=== PATIENT | female | born 1950 | race Caucasian/White ===

== ENCOUNTER → 2021-09-08 | Outpatient (CLI) | payer MEDICARE, OTHER, SELFPAY | END | disposition home or self-care (01) | LOC: LABSPEC 09-09 06:54 | PROVIDERS: PCP Family Medicine; Referring Provider Family Medicine; Visit Provider Family Medicine | DX: U07.1 COVID-19 (principal) | CPT/HCPCS: 87635; U0005; U0003 ==

== ENCOUNTER 2021-09-09 16:53 | Outpatient (CLI) | payer MEDICARE, OTHER, SELFPAY ==
[2021-09-09] MEDS: 0.9% Saline Lock 10 ML Syringe IV (17:07)
[2021-09-09 17:12] VITALS: BP 121/69; PULSE 68; RESP 16; TEMP 36.4; O2SAT 98; BMI 19.7
[2021-09-09 18:27] VITALS: BP 114/63; PULSE 70; RESP 16; TEMP 37.1; O2SAT 100
[2021-09-09 19:15] VITALS: BP 114/66; PULSE 68; RESP 16; TEMP 36.8; O2SAT 100
== END 2021-09-09 19:31 | disposition home or self-care (01) ==
LOC: MS3OUT 16:54 → MS3 16:54
PROVIDERS: PCP Family Medicine; Referring Provider Nurse Practitioner Adult Health; Visit Provider Nurse Practitioner Adult Health
DX: Z23 Encounter for immunization (principal); U07.1 COVID-19
CPT/HCPCS: J7050; M0245; Q0245; A4216

== ENCOUNTER 2025-03-19 07:16 | Inpatient (IN) | payer MEDICARE, SELFPAY ==
[2025-03-19] VITALS (15 sets, daily range): BP systolic 107–154; BP diastolic 45–80; PULSE 71–97; RESP 14–20; TEMP 36.5–37.2; O2SAT 75–100; BMI 21.1; BMI 20.9
--- NOTE | 2025-03-19 08:43 | CT_ITS ---
PROCEDURE: BRAIN/HEAD WITHOUT CONTRAST 03/19/2025 REASON FOR EXAM: DIZZINESS Worsening dizziness for 4 days. TECHNIQUE: Head CT without intravenous contrast. Coronal and Sagittal reconstruction series were provided. One or more dose reduction techniques were used (e.g., Automated exposure control, adjustment of the mA and/or kV according to patient size, use of iterative reconstruction technique. RADIATION DOSE SUMMARY: CTDlvol: 44.99 mGy DLP: 796.11 mGycm COMPARISON: None FINDINGS: Brain: Low density in the periventricular white matter suggests mild chronic small vessel ischemic changes. Atherosclerotic plaque formation of the cavernous portions of the internal carotid arteries bilaterally. CSF Spaces: Mild generalized cerebral atrophy Sinuses/Mastoids: Clear at visualized levels Bones: Unremarkable Reading Location: [place] [address]
--- NOTE | 2025-03-19 08:43 | EKG12_ITS ---
Test Reason : Blood Pressure : */* mmHG Vent. Rate : 79 BPM Atrial Rate : 79 BPM P-R Int : 176 ms QRS Dur : 80 ms QT Int : 392 ms P-R-T Axes : 79 42 60 degrees QTcB Int : 449 ms Normal sinus rhythm Normal ECG Confirmed by Sukhdeep Villela ([id number]), design editor KONSTANTIN CRUMP ([id number]) on 03/20/2025 6:54:22 AM Referred By: Nikko Confirmed By: Sukhdeep Villela
--- NOTE | 2025-03-19 08:44 | EDS_ITS ---
HPI History of Present Illness Chief Complaint: Dizziness Informant: patient Narrative Narrative: 74-year-old female no significant past medical history. States she has had gradual onset of worsening dizziness since around Monday. Is not associated with head movement. It is worse when she goes from a sitting to a standing position. Denies any headache or head trauma. Denies any nausea, vomiting or diarrhea. Denies any change in her vision or speech. At times makes it difficult to walk. PFSH PFSH Medical History no medical history no medical history Home Medications ?Medication ?Instructions ?Recorded ?Last Taken ?Type NK 09/09/21 Unknown History Allergy/AdvReac Type Severity Reaction Status Date / Time No Known Allergies Allergy Verified 09/09/21 12:05 Surgical History Hx laparoscopic cholecystectomy Social History Smoking Status: Never smoker ROS ROS ED ROS Narrative Denies recent illness. Constitutional Constitutional ED: Denies anorexia Eyes Eyes: Reports none ENT ENT ED: Reports none Cardiovascular Cardiovascular: Reports none Respiratory/Chest Respiratory/Chest: Reports none Gastrointestinal Gastrointestinal: Reports none Genitourinary Genitourinary ED: Reports none Musculoskeletal Musculoskeletal: Reports none Integumentary Reports none Neurologic Neurologic: Reports none Psychiatric Psychiatric: Reports none Endocrine Endocrinology: Reports none Hematologic/Lymphatic Hematologic/Lymphatic: Reports none Allergic/Immunologic Allergic/Immunologic ED: Reports none EXAM Physical Exam Narrative Exam Narrative: Well-appearing 74-year-old female sitting upright in bed. Family in the room. Vital signs stable afebrile. Pulse ox 100% on room air no hypoxia. She is in no distress. H EENT exam pupils round react light. Moist mucous membranes. Extraocular motions intact. No facial droop. Normal speech. No trauma. Neck nontender. No bruits. Lungs clear to auscultation bilaterally. Heart regular rhythm rate about 85 no murmur. Chest wall ribs nontender. Abdomen soft nontender. Moving all 4 extremities. 5 out of 5 audit practice intern strength. Dorsi plantarf lexion intact. Neurologically she is awake alert. Answering questions following commands. Hallpike maneuver negative. Back nontender. Very benign normal exam. Const Vital Signs: 03/19/25 07:16 03/19/25 07:20 03/19/25 08:16 Temperature 97.7 F L Temperature Source Temporal Pulse Rate 87 82 Pulse Rate [Lying] Pulse Rate [Sitting (for 1 minute prior to obtaining)] Pulse Rate [Standing (for 1 minute prior to obtaining)] Respiratory Rate 20 H 18 Blood Pressure 154/80 H 119/63 Blood Pressure [Lying] Blood Pressure [Sitting (for 1 minute prior to obtaining)] Blood Pressure [Standing (for 1 minute prior to obtaining)] Blood Pressure Mean 104 81 Blood Pressure Mean [Lying] Blood Pressure Mean [Sitting (for 1 minute prior to obtaining)] Blood Pressure Mean [Standing (for 1 minute prior to obtaining)] Pulse Ox 100 75 99 Oxygen Delivery Method Room Air 03/19/25 09:00 03/19/25 09:37 03/19/25 10:15 Temperature Temperature Source Pulse Rate 71 Pulse Rate [Lying] 76 Pulse Rate [Sitting (for 1 minute prior to obtaining)] 88 Pulse Rate [Standing (for 1 minute prior to obtaining)] 92 Respiratory Rate 15 Blood Pressure 127/65 H 117/70 Blood Pressure [Lying] 123/62 H Blood Pressure [Sitting (for 1 minute prior to obtaining)] 135/78 H Blood Pressure [Standing (for 1 minute prior to obtaining)] 117/70 Blood Pressure Mean 83 85 Blood Pressure Mean [Lying] 82 Blood Pressure Mean [Sitting (for 1 minute prior to obtaining)] 97 Blood Pressure Mean [Standing (for 1 minute prior to obtaining)] 85 Pulse Ox 100 100 Oxygen Delivery Method 03/19/25 11:24 03/19/25 13:00 Temperature Temperature Source Pulse Rate 79 97 Pulse Rate [Lying] Pulse Rate [Sitting (for 1 minute prior to obtaining)] Pulse Rate [Standing (for 1 minute prior to obtaining)] Respiratory Rate 17 15 Blood Pressure 107/66 119/56 L Blood Pressure [Lying] Blood Pressure [Sitting (for 1 minute prior to obtaining)] Blood Pressure [Standing (for 1 minute prior to obtaining)] Blood Pressure Mean 79 77 Blood Pressure Mean [Lying] Blood Pressure Mean [Sitting (for 1 minute prior to obtaining)] Blood Pressure Mean [Standing (for 1 minute prior to obtaining)] Pulse Ox 99 95 Oxygen Delivery Method Room Air Room Air Positive well nourished, well developed, alert, oriented x3, no apparent distress, average body habitus, no limitations and healthy appearing; Negative for obese, cachectic, contractures or unkempt General Appearance ED: active, cooperative, comfortable, well kempt and well developed; Negative for unkempt, cachectic or contractures Nutritional Appearance: Negative for cachectic or obese HEENT Reports normocephalic and head/scalp atraumatic Face and Sinus: normal facial exam Nose: external nose normal Mouth ED: Yes oral and palatal mucosa normal Mouth: oral and palatal mucosa normal Eyes PERRL and EOMs intact bilaterally General Eye ED: Yes normal appearance of both eyes Pupil: PERRL Neck full ROM, no lymphadenopathy, supple, no meningeal signs, no JVD and no carotid bruits Lymph Lymphatic: no lymphadenopathy noted and no lymphedema noted Chest Wall inspection of chest normal and palpation of chest normal Resp normal respiratory effort, normal air movement, no retractions, no use of accessory muscles and clear to auscultation bilaterally Effort and Inspection: able to speak in complete sentences Auscultation: clear to auscultation bilaterally Cardio regular rate, regular rhythm, S1 normal heart sound, S2 normal heart sound, no murmurs, no rub, no gallops, no clicks and no JVD Rate: regular rate Rhythm: regular rhythm GI normal to inspection, nondistended, normoactive bowel sounds, soft to palpation, non-tender, non-distended, no masses and no bruits Palpation: soft; Negative for tender Percussion: normal to percussion Back/Spine no CVA tenderness, normal ROM and normal to inspection Extremity normal to inspection, full ROM, normal capillary refill, no joint enlargement, no calf tenderness and no pedal edema Neuro oriented x3, CN's II-XII intact bilaterally, moves all extremities, no focal motor deficits and no sensory deficits noted Sensorium / Orientation: awake, oriented to person, oriented to place and oriented to time; Negative for orientation impaired, confused or lethargic Coordination / Balance: [id number] test normal Speech: speech normal Motor Exam: strength 5/5 throughout Coordination: [id number] test normal Psych mental status grossly normal, thought process normal, cooperative, affect normal and speech normal Appearance: grossly normal; Negative for unkempt Attitude: calm and engaged Activity / Motor Behavior: appropriate eye contact Speech: normal speech Mood & Affect: euthymic mood Thought Process: normal thought process Skin no rashes or lesions noted, no wounds, skin turgor normal, no jaundice, no petechiae and no mottling Rashes: no rashes Trauma: no lacerations or abrasions MDM MDM MDM Narrative Medical decision making narrative: 74-year-old female with dizziness seems positional but not vertiginous. Exam normal. Normal neurologic exam. Differential would include stroke, orthostatic hypotension, electrolyte abnormalities, anemia, versus other etiologies. CAT scan and labs are pending. Exam is benign. Repeat exam at 11 AM unchanged. Orthostatics were negative Hallpike's negative. Nurses tried to ambulate the patient and she had ataxia. I discussed with her test results and exam. I am going to admit her for ataxia for further evaluation and possible MRI. I have the hospitalist on page. Repeat neurologic exam in bed is unchanged and normal. NIH is 0. MRI returned abnormal. I am adding a CTA head and neck. The hospitalist on page for admission. History & Record Review Discussion w/independent historian: Patient and Family Additional record(s) reviewed:: Prior inpatient record, Prior outpatient record, Prior ED visit and Prior labs Lab Data Attestation: I reviewed the patient's lab results. Lab results narrative: CBC normal. White count 6.9. H&H 12.9 and 39. Platelets 285. Electrolytes show sodium 140. Gap 14. BUN of 18 creatinine 0.9. Glucose 180. UA is negative. No white or red cells. No bacteria or nor nitrates. CT of the brain showed chronic changes no acute process. No stroke or bleed. Abnormal MRI findings for possible ischemia. Labs: Laboratory Results - last 24 hr 03/19/25 03/19/25 07:35 09:52 WBC 6.9 RBC 4.88 Hgb 12.9 Hct 39.8 MCV 81.6 MCH 26.4 L MCHC 32.4 RDW Std Deviation 41.9 RDW Coeff of Tyson 14.2 Plt Count 285 MPV 11.1 Immature Gran % (Auto) 0.100 Neut % (Auto) 66.4 Lymph % (Auto) 24.2 [place] % (Auto) 6.9 Eos % (Auto) 2.0 Baso % (Auto) 0.4 Absolute Neuts (auto) 4.6 Absolute Lymphs (auto) 1.68 Nucleated RBC % 0 Sodium 140 Potassium 3.8 Chloride 105 Carbon Dioxide 21.8 Anion Gap 14 BUN 18 Creatinine 0.96 Estim Creat Clear Calc 43.72 L Est GFR (MDRD) Non-Af 61 BUN/Creatinine Ratio 18.8 Glucose 180 H Calcium 9.4 Urine Color Yellow Urine Clarity Cloudy Urine pH 8.0 Ur Specific [place] 1.015 Urine Protein 15 H Urine Glucose (UA) Normal Urine Ketones 15 H Urine Occult Blood Negative Urine Nitrite Negative Urine Bilirubin Negative Urine Urobilinogen Normal Ur Leukocyte Esterase 25 H Urine RBC 0-5 SEEN Urine WBC 0-5 SEEN Ur Squamous Epith Cells 0 SEEN Amorphous Sediment 2+ PHOS Urine Bacteria 0 SEEN Urine Mucus 0 SEEN Radiography Diagnostic Testing: Clinical Impression(s) from Imaging Studies Brain MRI 03/19/25 11:14 IMPRESSION: There is focal restricted diffusion in the right and left cerebellar tonsillar region, measuring 2.0 by 1.0 cm on the right, and 2.1 x 1.0 cm on the left, DWI image 02/01. There is no associated T2 or FLAIR signal change in this region. There are no T1 signal changes. There is extensive abnormal increased T2 and FLAIR signal throughout the deep and subcortical white matter on the right and left with the appearance of severe chronic small-vessel ischemic change, without associated acute diffusion. Critical results were discussed with Dr. Daniel by Dr. Perla at the time of dictation. Reading Location: [facility] Rhythm Strip Rhythm Strip: Sinus Rhythm Rate: 79 Ectopy: None EKG Initial EKG: Attestation: I personally reviewed and interpreted this EKG as follows: Interpretation: Sinus Rhythm and No Acute Injury Pattern Comments: Normal sinus rhythm rate of 79 no acute signs of CA nor ischemia nor dysrhythmia. Discharge Plan Dx/Rx/DC Orders Clinical Impression: Dizziness, Ataxia, Stroke Disposition Disposition: Acute Care [facility]
[2025-03-19 09:15] LABS: Absolute Lymphocyte Count 1.68 X10^3/uL (0.83-4.51); Absolute Neutrophil Count 4.6 X10^3/uL (2.0-7.7); Basophil# 0.03 X10^3/uL; Basophil% 0.4 % (0-1); Eosinophil# 0.14 X10^3/uL; Hematocrit 39.8 % (37-47); Hemoglobin 12.9 g/dL (12.0-15.0); Lymphocyte # 1.68 X10^3/ul (0.83-4.51); Lymphocyte % 24.2 % (19-41); Mean Corp Hgb Conc 32.4 g/dL (32-36); Mean Corpuscular Hgb 26.4 pg (27.0-32.0); Mean Corpuscular Volume 81.6 fL (81-99); Mean Platelet Vol. 11.1 fl (6.2-12.0); Monocyte# 0.48 X10^3/uL; Monocyte% 6.9 % (0-10); NRBC Flagged by Analyzer 0 % (0-5); Neutrophil # 4.59 X10^3/uL (2.7-7.7); Neutrophil % 66.4 % (47-70); Platelet Count 285 K/mm3 (150-450); RBC Distribution Width CV 14.2 % (11.6-14.6); RBC Distribution Width SD 41.9 fl (35.1-43.9); Red Blood Count 4.88 M/mm3 (4.2-5.4); White Blood Count 6.9 K/mm3 (4.4-11.0)
[2025-03-19 09:36] LABS: Anion Gap 14 (5-15); BUN 18 mg/dL (4-19); BUN/Creat Ratio 18.8 RATIO (10-20); Calcium,Total 9.4 mg/dL (7.6-11.0); Carbon Dioxide 21.8 mmol/L (21.0-32.0); Chloride 105 mmol/L (98-108); Creatinine, Serum 0.96 mg/dL (0.70-1.20); EST Glomerular Filtration Rate 61 (>60); Estimated Creatinine Clearance 43.72 ml/min (50-250); Glucose 180 mg/dL (70-99); Potassium 3.8 mmol/L (3.3-5.1); Sodium Level 140 mmol/L (133-145)
[2025-03-19 09:59] LABS: Bacteria 0 SEEN /hpf (None Seen); Mucous, Urine 0 SEEN /hpf (<or=2+); Squamous Epithelial Cells - UA 0 SEEN /hpf (5-10)
[2025-03-19 10:12] LABS: Color, Urine Yellow (Yellow); Glucose, Dipstick Normal (Normal); Ketone-Dipstick 15 mg/dl (Negative); Leukocyte Esterase-Dipstick 25 /ul (Negative); Nitrite-Dipstick Negative (Negative); Occult Blood-Urine Negative /ul (Negative); Protein-Dipstick 15 mg/dl (Negative); Specific Gravity, Urine 1.015 (1.002-1.030); Urine Bilirubin Dipstick Negative (Negative); Urine Clarity Cloudy (Clear); Urine Urobilinogen Normal (Normal)
[2025-03-19 10:21] LABS: Red Blood Cells-Urine 0-5 SEEN /hpf (0-5); White Blood Cells 0-5 SEEN /hpf (0-5)
[2025-03-19 10:22] LABS: Amorphous Sediment 2+ PHOS
--- NOTE | 2025-03-19 11:14 | MRI_ITS ---
EXAM: BRAIN WITHOUT CONTRAST CLINICAL HISTORY: ATAXIA, dizziness, weakness COMPARISON: None. TECHNIQUE: Multiplanar, multisequence MR images of the brain were obtained without gadolinium contrast material. FINDINGS: There is focal restricted diffusion in the right and left cerebellar tonsillar region, measuring 2.0 by 1.0 cm on the right, and 2.1 x 1.0 cm on the left, DWI image 02/01. There is no associated T2 or FLAIR signal change in this region. There are no T1 signal changes. There is extensive abnormal increased T2 and FLAIR signal throughout the deep and subcortical white matter on the right and left with the appearance of severe chronic small-vessel ischemic change, without associated acute diffusion. No intracranial hemorrhage, mass, mass effect, midline shift or pathologic extra- axial fluid collection. No hydrocephalus. No cerebellar tonsillar ectopia. No sellar/suprasellar signal abnormalities. The ocular globes and intraorbital soft tissues are symmetrically unremarkable. Paranasal sinuses are essentially clear. MRI/Brain without Contrast IMPRESSION: There is focal restricted diffusion in the right and left cerebellar tonsillar region, measuring 2.0 by 1.0 cm on the right, and 2.1 x 1.0 cm on the left, DWI image 02/01. There is no associated T2 or FLAIR si gnal change in this region. There are no T1 signal changes. There is extensive abnormal increased T2 and FLAIR signal throughout the deep a nd subcortical white matter on the right and left with the appearance of severe chronic small-vessel ischemic change, without ass ociated acute diffusion. Critical results were discussed with Dr. Daniel by [facility] of dictation. Reading [facility]
--- NOTE | 2025-03-19 13:18 | CT_ITS ---
PROCEDURE: CTA HEAD AND NECK W/ CONTRAST 03/19/2025 REASON FOR EXAM: ATAXIA TECHNIQUE: CTA imaging of the head and neck from the aortic arch to the skull vertex with out contrast and with intravenous contrast. Multiplanar and multisequence images were obtained. CONTRAST: Isovue 370 VOLUME: 100 mL One or more dose reduction techniques were used (e.g., Automated exposure control, adjustment of the mA and/or kV according to patient size, use of iterative reconstruction technique). RADIATION DOSE SUMMARY: CTDlvol: 15.3 mGy DLP: 545.22 mGycm COMPARISON: None FINDINGS: Heterogeneous enlargement with cystic nodule in the left lobe of the thyroid with a peripheral calcification. Left substernal extension. Aortic Arch: Normal size and branching pattern. No significant atherosclerotic plaque. Brachiocephalic and Subclavians: Unremarkable RIGHT Carotid: Right CCA: Unremarkable. Right ICA: Unremarkable. Right ECA: Unremarkable. LEFT Carotid: Left CCA: Unremarkable. Left ICA: Unremarkable. Left ECA: Unremarkable. Vertebrals: Codominant. Arise from the subclavians. Both vertebrals form the basilar. RIGHT Vertebral: Unremarkable. LEFT Vertebral: Unremarkable. Anatomy: [place] anatomy is normal. Aneurysm or avm: No intracranial aneurysms or large vascular malformations are identified. Anterior cerebral arteries: Unremarkable: Middle cerebral arteries: Unremarkable. Basilar artery: Unremarkable. Posterior cerebral arteries: Unremarkable. Other major branches of the posterior circulation: Unremarkable. Major venous structures: Unremarkable. Other findings: Hypodense nodule in the left lobe of the thyroid as described. CT/CTA Head AND Neck W/ Contrast IMPRESSION: Normal intra cerebral min extra cerebral circulation. Reading Location: [place] [address]
--- NOTE | 2025-03-19 13:44 | HP.PCM.HOS_ITS ---
HPI - General General Date of Admission: 03/19/25 Date of Service: 03/19/25 Chief Complaint: Dizziness with ataxia HPI Narrative MARIE JANSEN, is a 74 F who presented to [facility] ED on 03/19/25 with 3 to 4-day history of dizziness with ataxia. Patient has minimal medical history, takes no medications regularly. She began to notice dizziness and difficulty with balance with walking about 3 to 4 days ago. She notes that it is steadily gotten worse to the point where she has had some episodes of nausea with vomiting and cannot walk without severe ataxia, so she came in for further evaluation. CT brain was unremarkable but MRI brain obtained in the ED did show a focal restricted diffusion in the right and left cerebellar tonsillar regions measuring 2.0 x 1.0 cm in the right and 2.1 x 1.0 cm in the left concerning for acute stroke. ED physician attempted to walk her with assistance earlier this afternoon and she continued to have severe ataxia, so hospitalist was contacted for admission. I saw the patient at bedside in the ED, was present. Patient was sitting back comfortably in bed, conversing normally and in no acute distress. She denied any dizziness at rest. Denies any focal weakness or numbness/tingling. Denies any pain or discomfort. Denies any recent illnesses. No other acute concerns at this time. [facility] Medical History no medical history Home Medications ?Medication ?Instructions ?Recorded ?Last Taken ?Type NK 09/09/21 Unknown History Allergy/AdvReac Type Severity Reaction Status Date / Time No Known Allergies Allergy Verified 09/09/21 12:05 Family History no significant family his Surgical History Hx laparoscopic cholecystectomy Social History Smoking Status: Never smoker ROS Constitutional Constitutional: Denies chills, fatigue, fever(s) or weakness Eyes Eyes: Denies change in vision Cardiovascular Cardiovascular: Denies chest pain Respiratory/Chest Respiratory/Chest: Denies shortness of breath at rest Gastrointestinal Gastrointestinal: Denies abdominal pain Musculoskeletal Musculoskeletal: Denies arthralgias or myalgias Neurologic Neurologic: Reports abnormal gait, disequilibrium and dizziness; Denies abnormal speech, confusion, focal weakness, headache(s), numbness, paresthesias or tingling Vital Signs Vital Signs Vital Signs: 03/19/25 07:16 03/19/25 07:20 03/19/25 08:16 Temperature 97.7 F L Temperature Source Temporal Pulse Rate 87 82 Pulse Rate [Lying] Pulse Rate [Sitting (for 1 minute prior to obtaining)] Pulse Rate [Standing (for 1 minute prior to obtaining)] Respiratory Rate 20 H 18 Blood Pressure 154/80 H 119/63 Blood Pressure [Lying] Blood Pressure [Sitting (for 1 minute prior to obtaining)] Blood Pressure [Standing (for 1 minute prior to obtaining)] Blood Pressure Mean 104 81 Blood Pressure Mean [Lying] Blood Pressure Mean [Sitting (for 1 minute prior to obtaining)] Blood Pressure Mean [Standing (for 1 minute prior to obtaining)] Pulse Ox 100 75 99 Oxygen Delivery Method Room Air 03/19/25 09:00 03/19/25 09:37 03/19/25 10:15 Temperature Temperature Source Pulse Rate 71 Pulse Rate [Lying] 76 Pulse Rate [Sitting (for 1 minute prior to obtaining)] 88 Pulse Rate [Standing (for 1 minute prior to obtaining)] 92 Respiratory Rate 15 Blood Pressure 127/65 H 117/70 Blood Pressure [Lying] 123/62 H Blood Pressure [Sitting (for 1 minute prior to obtaining)] 135/78 H Blood Pressure [Standing (for 1 minute prior to obtaining)] 117/70 Blood Pressure Mean 83 85 Blood Pressure Mean [Lying] 82 Blood Pressure Mean [Sitting (for 1 minute prior to obtaining)] 97 Blood Pressure Mean [Standing (for 1 minute prior to obtaining)] 85 Pulse Ox 100 100 Oxygen Delivery Method 03/19/25 11:24 03/19/25 13:00 Temperature Temperature Source Pulse Rate 79 97 Pulse Rate [Lying] Pulse Rate [Sitting (for 1 minute prior to obtaining)] Pulse Rate [Standing (for 1 minute prior to obtaining)] Respiratory Rate 17 15 Blood Pressure 107/66 119/56 L Blood Pressure [Lying] Blood Pressure [Sitting (for 1 minute prior to obtaining)] Blood Pressure [Standing (for 1 minute prior to obtaining)] Blood Pressure Mean 79 77 Blood Pressure Mean [Lying] Blood Pressure Mean [Sitting (for 1 minute prior to obtaining)] Blood Pressure Mean [Standing (for 1 minute prior to obtaining)] Pulse Ox 99 95 Oxygen Delivery Method Room Air Room Air Weight Weight: 55.8 kg Body Mass Index (BMI) 21.1 Physical Exam Const alert, oriented x3, no apparent distress and average body habitus Constitutional Narrative: Pleasant elderly female, sitting back comfortably in bed, conversing normally, in no acute distress. General Appearance: cooperative and comfortable HEENT normocephalic, head/scalp atraumatic, hearing grossly normal bilaterally, nasal mucous membranes and turbinates normal and moist oral mucous membranes Eyes PERRL, EOMs intact bilaterally and conjunctivae normal Neck full ROM Chest inspection of chest normal Resp normal respiratory effort, normal air movement, no use of accessory muscles and clear to auscultation bilaterally Cardio regular rate, regular rhythm, no murmurs and peripheral pulses 2+ throughout GI normal to inspection, nondistended, normoactive bowel sounds, soft to palpation, non-tender and non-distended Back/Spine normal ROM Extremity normal to inspection, full ROM and no pedal edema Skin no rashes or lesions noted Neuro oriented x3, moves all extremities and no focal motor deficits Speech: speech normal Motor Exam: strength 5/5 throughout Psych mental status grossly normal Results Lab / Micro Data 03/19/25 07:35 03/19/25 07:35 Labs: Laboratory Results - last 24 hr 03/19/25 07:35: WBC 6.9, RBC 4.88, Hgb 12.9, Hct 39.8, MCV 81.6, MCH 26.4 L, MCHC 32.4, RDW Std Deviation 41.9, RDW Coeff of Tyson 14.2, Plt Count 285, MPV 11.1, Immature Gran % (Auto) 0.100, Neut % (Auto) 66.4, Lymph % (Auto) 24.2, [place] % (Auto) 6.9, Eos % (Auto) 2.0, Baso % (Auto) 0.4, Absolute Neuts (auto) 4.6, Absolute Lymphs (auto) 1.68, Nucleated RBC % 0, Sodium 140, Potassium 3.8, Chloride 105, Carbon Dioxide 21.8, Anion Gap 14, BUN 18, Creatinine 0.96, Estim Creat Clear Calc 43.72 L, Est GFR (MDRD) Non-Af 61, BUN/Creatinine Ratio 18.8, G lucose 180 H, Calcium 9.4 03/19/25 09:52: Urine Color Yellow, Urine Clarity Cloudy, Urine pH 8.0, Ur Specific [place] 1.015, Urine Protein 15 H, Urine Glucose (UA) Normal, Urine Ketones 15 H, Urine Occult Blood Negative, Urine Nitrite Negative, Urine Bilirubin Negative, Urine Urobilinogen Normal, Ur Leukocyte Esterase 25 H, Urine RBC 0-5 SEEN, Urine WBC 0-5 SEEN, Ur Squamous Epith Cells 0 SEEN, Amorphous Sediment 2+ PHOS, Urine Bacteria 0 SEEN, Urine Mucus 0 SEEN Rhythm Strip Rhythm Strip: Sinus Rhythm Rate: 79 Ectopy: None Imaging Radiology Impression Brain MRI 03/19/25 11:14 IMPRESSION: There is focal restricted diffusion in the right and left cerebellar tonsillar region, measuring 2.0 by 1.0 cm on the right, and 2.1 x 1.0 cm on the left, DWI image 02/01. There is no associated T2 or FLAIR signal change in this region. There are no T1 signal changes. There is extensive abnormal increased T2 and FLAIR signal throughout the deep and subcortical white matter on the right and left with the appearance of severe chronic small-vessel ischemic change, without associated acute diffusion. Critical results were discussed with Dr. Daniel by Dr. Perla at the time of dictation. Reading Location: [place] Assessment & Plan Assessment/Plan (1) Stroke: PLAN: Plan Patient is a 74-year-old female who presented [facility] ED on 03/19/2025 with dizziness and ataxia. 1. Suspected acute cerebellar stroke ? Admit under inpatient status to PCU. Neurology consulted. Presented with 3 to 4-day history of dizziness and ataxia. MRI brain showed 2 x 1 cm areas of restricted diffusion in both the right and left cerebellar tonsillar regions concerning for acute stroke. CTA head/neck unremarkable. Echo with bubble study ordered. Other orders placed per stroke protocol order set. Appreciate further neurology recommendations. PT/OT/case management consulted. DVT prophylaxis: SCDs CODE STATUS: Full code, verified Expected disposition: TBD Total clinical time spent by myself addressing the patient's medical issues, reviewing all the data, and collaborating with patient's care team: 55 minutes. Charges/Coding Visit Charges Inpatient E&M: 54808 Init Hosp L2
--- NOTE | 2025-03-19 13:56 | ECHOD_ITS ---
Reason For Study Reason For Study: TIA/STROKE Procedure This was a 2D Doppler, Color Flow transthoracic echocardiogram. Exam performed portable in ED. Left Ventricle Normal size and thickness. The LV systolic function is normal. EF is 65 %. Normal diastology for age. Right Ventricle Normal right ventricle. Atria The left and right atria are normal. Mitral Valve Mild (1+) mitral valve insufficiency. Tricuspid Valve Trivial tricuspid valve insufficiency. Normal pulmonary artery pressure. Aortic Valve The aortic valve is not well visualized in the short axis view. There is no aortic stenosis. No aortic valve insufficiency. Pulmonic Valve The pulmonic valve is not well visualized. Great Vessels Normal sized aortic root. Pericardium/Pleural No pericardial effusion. MMode/2D Measurements & Calculations LVIDd: 4.4 cm IVSd: 1.1 cm Ao root diam: 3.1 cm LVIDs: 2.6 cm LVPWd: 0.81 cm RVDd: 3.1 cm FS: 40.0 % LAV(MOD-bp): 29.0 ml LVAd ap4: 21.1 cm2 LVAd ap2: 19.3 cm2 LAV(MOD-bp) Indexed: 18.2 ml/m2 LVLd ap4: 6.7 cm LVLd ap2: 7.4 cm LAV(MOD-sp2): 23.1 ml EDV(MOD-sp4): 52.7 ml EDV(MOD-sp2): 41.2 ml LAV(MOD-sp4): 32.3 ml EDV(sp4-el): 55.9 ml EDV(sp2-el): 42.7 ml LVAs ap4: 10.1 cm2 LVAs ap2: 8.9 cm2 LVLs ap4: 5.8 cm LVLs ap2: 5.6 cm ESV(MOD-sp4): 15.4 ml ESV(MOD-sp2): 12.3 ml ESV(sp4-el): 15.0 ml ESV(sp2-el): 12.0 ml EF(MOD-sp4): 70.8 % EF(MOD-sp2): 70.2 % EF(sp4-el): 73.1 % SV(MOD-sp4): 37.3 ml SV(MOD-sp2): 28.9 ml SV(sp4-el): 40.9 ml SI(MOD-sp4): 23.4 ml/m2 SI(MOD-sp2): 18.2 ml/m2 LA A4 area: 13.1 cm2 LA dimension(2D): 2.9 cm RA A4 area: 10.7 cm2 TAPSE: 2.1 cm Time Measurements MV dec time: 0.23 sec Doppler Measurements & Calculations MV E max jean: 58.3 cm/sec Lat Peak E' Jean: 8.9 cm/sec Med Peak E' Jean: 5.7 cm/sec MV A max jean: 85.6 cm/sec E/E' lat: 6.5 E/E' med: 10.3 MV E/A: 0.68 Ao V2 max: 135.9 cm/sec LV V1 max: 133.3 cm/sec MV dec slope: 256.9 cm/sec2 Ao max P.4 mmHg LV V1 max P.1 mmHg Ao V2 mean: 97.5 cm/sec LV V1 mean P.9 mmHg Ao mean P.3 mmHg LV V1 mean: 92.3 cm/sec Ao V2 VTI: 29.0 cm LV V1 VTI: 27.7 cm AV (velocity ratio): 0.95 PA V2 max: 129.3 cm/sec TR max jean: 239.3 cm/sec PA V2 mean: 79.5 cm/sec TR max P.9 mmHg ECHO/Echo Complete Interpretation Summary The LV systolic function is normal. EF is 65 %. Mild (1+) mitral valve insufficiency. Ordering Physician: Yordan Dallas Referring Physician: Noam Farley Performed By: Pati Porter RDCS, RVT
[2025-03-19 15:10] LABS: Hemoglobin A1c 5.8 % (<=5.6)
[2025-03-19] MEDS: Acetaminophen 325 MG Tablet 650 MG PO (20:05)
[2025-03-19] MEDS: Atorvastatin Calcium 40 MG Tablet PO (22:18)
--- NOTE | 2025-03-19 23:54 | NURSING ---
This RN taking over care for this patient on 03/19/25 at 2320.
[2025-03-20] VITALS: BMI 20.9
[2025-03-20 00:05] VITALS: O2SAT 97
[2025-03-20 03:00] VITALS: PULSE 68
[2025-03-20 03:43] VITALS: BP 112/61; PULSE 76; RESP 16; TEMP 36.9; O2SAT 98
[2025-03-20 04:46] LABS: Hematocrit 39.2 % (37-47); Hemoglobin 12.5 g/dL (12.0-15.0); Mean Corp Hgb Conc 31.9 g/dL (32-36); Mean Corpuscular Hgb 26.5 pg (27.0-32.0); Mean Corpuscular Volume 83.2 fL (81-99); Mean Platelet Vol. 10.6 fl (6.2-12.0); Platelet Count 263 K/mm3 (150-450); RBC Distribution Width CV 14.4 % (11.6-14.6); RBC Distribution Width SD 43.8 fl (35.1-43.9); Red Blood Count 4.71 M/mm3 (4.2-5.4)
[2025-03-20 05:08] LABS: Anion Gap 10 (5-15); BUN 10 mg/dL (4-19); BUN/Creat Ratio 12.1 RATIO (10-20); Carbon Dioxide 23.3 mmol/L (21.0-32.0); Chloride 108 mmol/L (98-108); Cholesterol 160 mg/dL (<=200); Creatinine, Serum 0.79 mg/dL (0.70-1.20); EST Glomerular Filtration Rate 78 (>60); Estimated Creatinine Clearance 52.47 ml/min (50-250); Glucose 103 mg/dL (70-99); High Density Lipoprotein 50 mg/dL; Low Density Lipoprotein Calc. 90 mg/dL; Potassium 3.7 mmol/L (3.3-5.1); Sodium Level 141 mmol/L (133-145); Triglycerides 100 mg/dL; Very Low Density Lipoprotein 20 mg/dL (5-40); cholesterol:hdl ratio screen 3.19
[2025-03-20 07:35] VITALS: BP 122/58; PULSE 74; RESP 12; RESP 14; TEMP 36.8; O2SAT 97
[2025-03-20] MEDS: Aspirin 81 MG TAB.CHEW PO (08:58)
--- NOTE | 2025-03-20 09:40 | CASEMGMT ---
MASHA BAKER Assessment Face to Face with patient for initial transition planning/care coordination assessment. MASHA BAKER introduced self and role at [facility], pt voices understanding. Pt is A&Ox4 and is resting comfortably in bed and is calm. Care providers, pharmacy, and demographics verified. Admitting dx: Suspected CVA LACE Strata:1 PCP: Miguelito Specialists: Denies Preferred Pharmacy: [facility] Insurance: [facility] Prescription Benefit: Yes LNOK: Brady (H) Living Arrangements: Pt lives with her in a single story home ADLs/IADLs: Indep. 6-Click score is 24 Transportation: Self, DME: Denies HHC/SNF: Denies Pt?s goal: Home Plan: Home, anticipate no additional needs at this time. Pt was cleared by ST, see note. Pt states that she feels more than safe returning home with her once she is medically ready and denies further concerns at this time. Sunil Betancourt RN, CM
--- NOTE | 2025-03-20 11:11 | DS.PCM_ITS ---
Providers Date of Admission: 03/19/25 Date of Discharge: 03/20/25 Primary Care Physician: Dr. Noam Farley MD Consultations 03/19/25 15:41 Consult: Tele-Neurology Routine Consulting Provider: [facility] Reason for Consult: Acute Ischemic Stroke/TIA EMERGENT Consult: No Notified: No Date Notified: 03/19/25 Time Notified: 13:55 Nursing Unit Staff Notify [facility] of Tele-Neurology Consult: Yes Reason For Visit: SUSPECTED ACUTE CEREBELLAR CVA Diagnosis Discharge Diagnosis (1) Stroke: Status: Acute Code(s): I63.9 - Cerebral infarction, unspecified Medications at Discharge Home Medications aspirin 81 mg chewable tablet 81 mg PO BREAKFAST 90 days #90 tabs 03/20/25 atorvastatin 40 mg tablet 40 mg PO QHS 90 days #90 tabs 03/20/25 Hospital Course Operations None Procedures EKG, Transthoracic echo and - (CT brain, MRI brain, CTA head/neck) Summary of Care Provided Minutes Spent on Discharge: 35 Hospital Course: Patient is a 74-year-old female who presented [facility] ED on 03/19/2025 with dizziness and ataxia. Short hospital course as noted below. Patient discharged home in stable condition on 03/20. 1. Concern for acute cerebellar stroke ? Neurology evaluated. Presented with 3 to 4-day history of dizziness and ataxia. MRI brain showed 2 x 1 cm areas of restricted diffusion in both the right and left cerebellar tonsillar regions concerning for acute stroke. CTA head/neck unremarkable. Echo with bubble study unremarkable. Lipid panel with total cholesterol 160, LDL 90, HDL 50. A1c 5.8%. TSH normal. Per neurology, noted that areas on MRI seem to be over called and may actually be areas of artifact rather than acute stroke. Patient did very well with therapy on hospital day 2 and ataxia had resolved. Will discharge home on baby aspirin and atorvastatin 40 mg daily. 30-day cardiac event monitor ordered on discharge as well. Discharged home in stable condition on 03/20. *Notably patient was admitted under inpatient status for suspected acute stroke. Patient recovered more quickly than anticipated and as above, neurology unclear if MRI findings were actually consistent with stroke so patient was able to be discharged home in stable condition on hospital day 2. Total clinical time spent by myself addressing the patient's medical issues, reviewing all the data, and collaborating with patient's care team: 35 minutes. Physical Exam Const alert, oriented x3, no apparent distress and average body habitus Constitutional Narrative: Pleasant elderly female, sitting back comfortably in bed, conversing normally, in no acute distress. General Appearance: cooperative and comfortable HEENT normocephalic, head/scalp atraumatic, hearing grossly normal bilaterally, nasal mucous membranes and turbinates normal and moist oral mucous membranes Eyes PERRL, EOMs intact bilaterally and conjunctivae normal Neck full ROM Chest inspection of chest normal Resp normal respiratory effort, normal air movement, no use of accessory muscles and clear to auscultation bilaterally Cardio regular rate, regular rhythm, no murmurs and peripheral pulses 2+ throughout GI normal to inspection, nondistended, normoactive bowel sounds, soft to palpation, non-tender and non-distended Back/Spine normal ROM Extremity normal to inspection, full ROM and no pedal edema Skin no rashes or lesions noted Neuro oriented x3, moves all extremities and no focal motor deficits Speech: speech normal Motor Exam: strength 5/5 throughout Psych mental status grossly normal Weight / BMI Weight Weight: 55.3 kg Body Mass Index (BMI) 20.9 ABG / Lab / Microbiology Data 03/20/25 04:20 03/20/25 04:20 Laboratory: Laboratory Results - last 24 hr 03/19/25 07:35: TSH 1.860 03/20/25 04:20: WBC 7.0, RBC 4.71, Hgb 12.5, Hct 39.2, MCV 83.2, MCH 26.5 L, M CHC 31.9 L, RDW Std Deviation 43.8, RDW Coeff of Tyson 14.4, Plt Count 263, MPV 10.6, Sodium 141, Potassium 3.7, Chloride 108, Carbon Dioxide 23.3, Anion Gap 10, BUN 10, Creatinine 0.79, Estim Creat Clear Calc 52.47, Est GFR (MDRD) Non-Af 78, BUN/Creatinine Ratio 12.1, Glucose 103 H, Calcium 9.0, Triglycerides 100, Cholesterol 160, LDL Cholesterol, Calc 90, VLDL Cholesterol 20, HDL Cholesterol 50, Cholesterol/HDL Ratio 3.19 Radiography Diagnostic Testing: Radiology Impression Echocardiogram 03/19/25 13:56 Interpretation Summary The LV systolic function is normal. EF is 65 %. Mild (1+) mitral valve insufficiency. Ordering Physician: Yordan Dallas Referring Physician: Noam Farley Performed By: Pati Porter, ROSALBA, RVT D/C Instructions DC O2, CPAP, BIPAP Needs Home O2 Discharge instructions: No Meaningful Use Info Meaningful Use Meaningful Use Diagnoses (Choose all that apply): None applicable Ischemic Stroke Statin Dosing Therapy Reference: STATIN DOSE THERAPY REFERENCE: * Patients > 75 years receive moderate or high dose statin therapy. * Patients 75 years or YOUNGER should receive HIGH intensity statin dose unless contraindicated. You will be required to document reason for non-treatment if statin daily dose does not meet guidelines. HIGH DOSE STATIN THERAPY DAILY Atorvastatin > than or = to 40 mg Rosuvastatin > than or = to 20 mg Amlodipine + Atorvastatin > than or = to 2.5/40 mg Ezetimibe + Simvastatin 10/80 mg Simvastatin 80mg Discharge Plan Admission Admit Date/Time: 03/19/25 13:53 Primary Reason for Your Visit: dizziness and imbalance Attending Provider: Yordan Dallas Primary Care Provider: Noam Farley Discharge Orders/Prescriptions Prescriptions: New aspirin 81 mg Tablet,Chewable 81 mg PO BREAKFAST 90 Days Qty: 90 0RF atorvastatin 40 mg Tablet 40 mg PO QHS 90 Days Qty: 90 0RF Other Ambulatory Orders: 30 Day Event Recorder Preventi (Urgent) Timeframe: 1 Month Facility: [facility] - Location: Cardiovascular Services Ordered By: Dr. Yordan Dallas Referrals / Follow Up: Noam Farley MD [Primary Care Provider] - Disposition Disposition (needs filled in before D/C Order can be placed): Home, Self Care Charges/Coding Visit Charges Inpatient E&M: 51199 Disch Hosp >30min
--- NOTE | 2025-03-20 11:11 | PCM.DC ---
Discharge Instructions Diet Discharge Diet: No restrictions DC O2, CPAP, BIPAP needs Home O2 Discharge instructions: No Dressing / Incision Discharge Activity: No Restrictions Follow Up Care Test Results: Test results from this visit will be discussed in further detail at your follow-up appointment, if applicable. Discharge Plan Admission Admit Date/Time: 03/19/25 13:53 Primary Reason for Your Visit: dizziness and imbalance Attending Provider: Yordan Dallas Primary Care Provider: Noam Farley Discharge Orders/Prescriptions Prescriptions: New aspirin 81 mg Tablet,Chewable 81 mg PO BREAKFAST 90 Days Qty: 90 0RF atorvastatin 40 mg Tablet 40 mg PO QHS 90 Days Qty: 90 0RF Other Ambulatory Orders: 30 Day Event Recorder Preventi (Urgent) Timeframe: 1 Month Facility: [facility] - Location: Cardiovascular Services Ordered By: Dr. Yordan Dallas Referrals / Follow Up: Noam Farley MD [Primary Care Provider] - Disposition Disposition (needs filled in before D/C Order can be placed): Home, Self Care
[2025-03-20 11:52] VITALS: BP 139/75; PULSE 77; RESP 16; TEMP 36.7; O2SAT 97
--- NOTE | 2025-03-20 19:19 | CON.PCM.NE_ITS ---
Assessment and Plan: Stroke Assessment/Plan #Likely mild ischemic stroke- MRI shows a questionable area of diffusion restriction in the cerebellar tonsils, although I do not see a clear ADC correlate and only in one cut. However, presention is concerning for ischemic stroke and radiology feels there is DWI restriction so would err on treating as likely ischemic stroke. Mechanis is cryptogenic ESUS. -start ASA 81 -recommend atorva 40. -CTA head/neck showed no significant stenosis -goal LDL<70, HBA1c <7 -obtain TTE -recommend 30 day cardiac event monitor -BP goal 120/80 -no smoking -follow up ?PCP in 1-2 week, fu with neurology in 4-6 weks HPI Consult Data Date of Consult: 03/20/25 HPI Narrative HPI Narrative: 74 yo F? w no significant PMH presents with imbalance for 3-4 days and nausea. States she couldn?t walk straight and was veering. Describes gait as if drunken or on a ship. No obvious triggers. Had been laying bricks in garden before this happened. Denies neck pain. No other associated symptoms besides fatigue. Not on AC or AP. Feels back to normal today. PFSH Medical History no medical history Home Medications ?Medication ?Instructions ?Recorded ?Last Taken ?Type aspirin 81 mg chewable tablet 81 mg PO BREAKFAST 90 da ys #90 tabs 03/20/25 Unknown Rx atorvastatin 40 mg tablet 40 mg PO QHS 90 days #90 tab s 03/20/25 Unknown Rx Allergy/AdvReac Type Severity Reaction Status Date / Time No Known Allergies Allergy Verified 09/09/21 12:05 Family History no significant family his Surgical History Hx laparoscopic cholecystectomy Social History Smoking Status: Never smoker Vital Signs Vital Signs Vital Signs: 03/19/25 19:47 03/19/25 23:43 03/20/25 00:05 Temperature 98.9 F 98.6 F Temperature Source Oral Oral Pulse Rate 84 77 Respiratory Rate 18 16 Blood Pressure 118/54 L 112/45 L Blood Pressure Mean 75 67 Blood Pressure Source Monitor Monitor Blood Pressure Position Supine Left Lateral Blood Pressure Location Left Arm Right Arm Pulse Ox 100 98 97 Oxygen Delivery Method Room Air Room Air Room Air 03/20/25 03:00 03/20/25 03:43 03/20/25 07:35 Temperature 98.4 F 98.2 F Temperature Source Oral Oral Pulse Rate 68 76 74 Respiratory Rate 16 14 Blood Pressure 112/61 122/58 H Blood Pressure Mean 78 79 Blood Pressure Source Monitor Monitor Blood Pressure Position Supine Semi-Fowlers Blood Pressure Location Right Arm Right Arm Pulse Ox 98 97 Oxygen Delivery Method Room Air Room Air 03/20/25 07:35 03/20/25 11:52 Temperature 98.2 F 98.1 F Temperature Source Oral Oral Pulse Rate 74 77 Respiratory Rate 12 16 Blood Pressure 122/58 H 139/75 H Blood Pressure Mean 79 96 Blood Pressure Source Monitor Monitor Blood Pressure Position Semi-Fowlers Sitting Blood Pressure Location Right Arm Left Arm Pulse Ox 97 97 Oxygen Delivery Method Room Air Room Air Weight Weight: 55.3 kg Body Mass Index (BMI) 20.9 EEG Results Procedure Details EEG Procedure Details: MARIE JANSEN is a 74 year old F with a past medical history of , who presents for evaluation of Electroencephalogram on DATE at TIME Physical Exam Narrative MS: awake, alert, oriented x 3, follows commands, able to name, no aphasia, no dysarthria CN: VFF, EOMI , no facial weakness, nml facial sensation M:? Antigravity in all extremities, no drift S: nml to LT in all extremities C: no dysmetria Lab / Micro Data 03/20/25 04:20 03/20/25 04:20 Labs: Laboratory Results - last 24 hr 03/20/25 04:20: WBC 7.0, RBC 4.71, Hgb 12.5, Hct 39.2, MCV 83.2, MCH 26.5 L, M CHC 31.9 L, RDW Std Deviation 43.8, RDW Coeff of Tyson 14.4, Plt Count 263, MPV 10.6, Sodium 141, Potassium 3.7, Chloride 108, Carbon Dioxide 23.3, Anion Gap 10, BUN 10, Creatinine 0.79, Estim Creat Clear Calc 52.47, Est GFR (MDRD) Non-Af 78, BUN/Creatinine Ratio 12.1, Glucose 103 H, Calcium 9.0, Triglycerides 100, Cholesterol 160, LDL Cholesterol, Calc 90, VLDL Cholesterol 20, HDL Cholesterol 50, Cholesterol/HDL Ratio 3.19 Rhythm Strip Rhythm Strip: Sinus Rhythm Rate: 79 Ectopy: None Imaging Radiology Impression Echocardiogram 03/19/25 13:56 Interpretation Summary The LV systolic function is normal. EF is 65 %. Mild (1+) mitral valve insufficiency. Ordering Physician: Yordan Dallas Referring Physician: Noam Farley Performed By: Pati Porter, ROSALBA, RVT S NIHSS Nursing Documentation NIHSS Nursing Documentation: NIHSS: Ischemic Stroke/TIA Start: 03/19/25 15:41 Text: For ICU Patients: NIH sroke scale at Status: Complete presentation and every 2 hours or with change in RN caregiver Freq: [id number] Protocol: Activity Type Activity Date Activity User E-sign Co-sign Detail Recorded Client Recorded Date Recorded By Document 03/19/25 23:43 [id number] 03/19/25 23:47 03/19/25 23:43 NIH Stroke Scale [NIHSS] A score of 0 is normal or asymptomatic . Total possible score is 42. Inpatient: RN or Physician to activate a stroke alert for onset of new stroke symptoms or with NIHSS increase >/= 3 points. Following change in neurological status, NIHSS will be performed per physician order or more frequently PRN. -1a. Level of Consciousness 0 - Alert; keenly responsive -1b. LOC Questions 0 - Answers BOTH questions correctly -1c. LOC Commands 0 - Performs BOTH tasks correctly -2. Best Gaze 0 - Normal -3. Visual 0 - No visual loss -4. Facial Palsy 0 - Normal symmetrical movements -5a. Left Arm 0 - No drift; arm holds 90 ( or 45) degrees for full 10 seconds -5b. Right Arm 0 - No drift; arm holds 90 ( or 45) degrees for full 10 seconds -6a. Left Leg 0 - No drift; leg holds 30- degree position for full 5 seconds -6b. Right Leg 0 - No drift; leg holds 30- degree position for full 5 seconds -7. Limb Ataxia 0 - Absent -8. Sensory 0 - Normal; no sensory loss -9. Best Language 0 - No aphasia; normal -10. Dysarthria 0 - Normal -11. Extinction and Inattention 0 - No abnormality -Total 0 Query Text:A score of 0 is normal or asymptomatic. Total possible score is 42 . ED: Notify Physician for NIHSS increase by > / = 3 points. Inpatient: RN or Physician to activate a stroke alert for NIHSS increase of > / = 3 points. NIHSS: Ischemic Stroke/TIA Start: 03/19/25 15:41 Text: For PCU Patients: NIH and Neuro Check every 4 Status: Discharge hours, PRN and with change in RN caregiver. Freq: [id number] Protocol: Activity Type Activity Date Activity User E-sign Co-sign Detail Recorded Client Recorded Date Recorded By Document 03/20/25 11:52 CLARK [id number] 03/20/25 11:53 CLARK 03/20/25 11:52 -1a. Level of Consciousness 0 - Alert; keenly responsive -1b. LOC Questions 0 - Answers BOTH questions correctly -1c. LOC Commands 0 - Performs BOTH tasks correctly -2. Best Gaze 0 - Normal -3. Visual 0 - No visual loss -4. Facial Palsy 0 - Normal symmetrical movements -5a. Left Arm 0 - No drift; arm holds 90 ( or 45) degrees for full 10 seconds -5b. Right Arm 0 - No drift; arm holds 90 ( or 45) degrees for full 10 seconds -6a. Left Leg 0 - No drift; leg holds 30- degree position for full 5 seconds -6b. Right Leg 0 - No drift; leg holds 30- degree position for full 5 seconds -7. Limb Ataxia 0 - Absent -8. Sensory 0 - Normal; no sensory loss -9. Best Language 0 - No aphasia; normal -10. Dysarthria 0 - Normal -11. Extinction and Inattention 0 - No abnormality -Total 0 Query Text:A score of 0 is normal or asymptomatic. Total possible score is 42 . ED: Notify Physician for NIHSS increase by > / = 3 points. Inpatient: RN or Physician to activate a stroke alert for NIHSS increase of > / = 3 points.
== END 2025-03-20 15:56 | disposition home or self-care (01) | DRG 66 ==
LOC: ED 13:26 → MS2 14:52
PROVIDERS: Admitting Provider Hospitalist; Emergency Provider Emergency Medicine; PCP Family Medicine; Visit Provider Hospitalist
DX: I63.9 Cerebral infarction, unspecified (principal); R27.0 Ataxia, unspecified; R29.700 NIHSS score 0
CPT/HCPCS: 36415; 70450; 70496; 70498; 70551; 80048; 80061; 81001; 83036; 84443; 85025; 85027; 92610; 93005; 93306; 94762; 97161; 97165; 97802; 99285; Q9967